=== PATIENT | male | born 1940 | race Two or more races ===

== ENCOUNTER 2017-07-24 09:29 | Day surgery (SDC) | payer BC ==
[2017-07-19 16:50] VITALS: BMI 27.2
[2017-07-24] MEDS ORDERED: PROPOFOL 20 ML ONE (10:38)
[2017-07-24 12:12] VITALS: BP 116/65; PULSE 65; TEMP 98
--- NOTE | 2017-07-26 15:42 | PATH ---
Surgical Pathology Report Patient Name: MORGAN SILVA [facility]. Rec. #: [id number] /Age/Gender: 1940 (Age: 77) / M Account: [id number] Location: [facility]-ENDOSCOPY Taken: 07/24/2017 Received: 07/24/2017 Reported: 07/26/2017 Physicians: Víctor Allen M.D. Specimen(s) Received BX RECTUM Clinical History Rule out colon cancer Polyp Final Diagnosis RECTUM, BIOPSY: TUBULAR ADENOMA. Electronically Signed Shweta Mckeon M.D. Gross Description Received in formalin, labeled "rectum" is a ventura, polypoid portion of soft tissue measuring 0.5 cm. in greatest dimension. The specimen is submitted in toto in one cassette. /07/25/201707/25/2017
== END 2017-07-24 12:16 | disposition home or self-care (01) ==
LOC: FASU-ENDO 09:29
PROVIDERS: ATTEND Internal Medicine Gastroenterology
PROC: 0DBP8ZX Excision of Rectum, Via Natural or Artificial Opening Endoscopic, Diagnostic (ICD-10-PCS; principal; 2017-07-24 11:10)
DX: Z12.11 Encounter for screening for malignant neoplasm of colon (principal); D12.8 Benign neoplasm of rectum
CPT/HCPCS: 88305-TC

== ENCOUNTER 2023-05-22 09:57 | Day surgery (SDC) | payer BC ==
[2023-05-17 10:44] VITALS: BMI 26.5
[2023-05-22 12:09] VITALS: RESP 16; TEMP 98.3
[2023-05-22 12:13] VITALS: BP 129/67; PULSE 56
== END 2023-05-22 12:15 | disposition home or self-care (01) ==
LOC: FASU-ENDO 09:57
PROVIDERS: ATTEND Internal Medicine Gastroenterology
PROC: 0DJD8ZZ Inspection of Lower Intestinal Tract, Via Natural or Artificial Opening Endoscopic (ICD-10-PCS; principal; 2023-05-22 11:15)
DX: Z12.11 Encounter for screening for malignant neoplasm of colon (principal); Z86.010 Personal history of colon polyps; K57.30 Diverticulosis of large intestine without perforation or abscess without bleeding